=== PATIENT | female | born 1935 | race African-American/Black ===

== ENCOUNTER 2017-01-25 07:53 | Outpatient (CLI) | payer OTHER ==
[~2017-01-25 07:53] MED LIST: MOTRIN; REMERON; VICODIN; [UNRECOGNIZED DRUG - OTHER]
[2017-01-25 08:46] LABS: BASOPHILS # (AUTO) 0.1 K/uL (0.00-0.22); BASOPHILS % (AUTO) 1.9 % (0.0-2.0); EOSINOPHILS % (AUTO) 1.2 % (0.0-4.0); HEMATOCRIT 45.6 % (36-48); HEMOGLOBIN 14.8 g/dL (12.0-16.0); LYMPHOCYTES # (AUTO) 0.4 K/uL (2.5-16.5); LYMPHOCYTES % (AUTO) 10.3 % (20.5-51.1); MEAN CORPUSCULAR HEMOGLOBIN 28 pg (27-31); MEAN CORPUSCULAR HGB CONC 33 g/dL (33-37); MEAN CORPUSCULAR VOLUME 85 fL (80-94); MONOCYTES # (AUTO) 0.5 K/uL (0.8-1.0); MONOCYTES % (AUTO) 11.9 % (1.7-9.3); NEUTROPHILS # (AUTO) 2.9 K/uL (1.8-7.7); NEUTROPHILS % (AUTO) 74.7 % (42.2-75.2); PLATELET COUNT (AUTO) 289 K/uL (140-450); RED BLOOD CELL COUNT(AUTO) 5.38 MIL/uL (4.20-5.40); RED CELL DISTRIBUTION WIDTH 14.7 % (11.6-13.7); WHITE BLOOD COUNT (AUTO) 3.9 K/uL (4.8-10.8)
[2017-01-25 09:11] LABS: ANION GAP 13.6 (8-16); ASPARTATE AMINOTRANSFERASE 15 U/L (15-37); CARBON DIOXIDE 25.8 mmol/L (21-32); CHLORIDE 103 mmol/L (98-107); CREATININE 1.2 mg/dL (0.6-1.3); GLUCOSE 95 mg/dL (74-106); POTASSIUM 4.4 mmol/L (3.5-5.1); SODIUM SERUM 138 mmol/L (136-145); TOTAL BILIRUBIN 0.6 mg/dL (0.0-1.0); UREA NITROGEN, BLOOD 12 mg/dL (7-18)
[2017-01-26 12:21] LABS: FOLIC ACID 7.6 ng/mL (>3.0)
== END 2017-01-25 20:26 | disposition home or self-care (01) ==
LOC: MLB 07:53
DX: F03.90 Unspecified dementia, unspecified severity, without behavioral disturbance, psychotic disturbance, mood disturbance, and anxiety (principal)
CPT/HCPCS: 36415; 80053; 82607; 82746; 84443; 84481; 85025; 85651; 86592

== ENCOUNTER 2018-07-09 15:17 | Emergency (ER) | payer OTHER ==
[~2018-07-09] VITALS: Ht 165.1 cm; Wt 68.0 kg
[2018-07-09 15:22] VITALS: BP 136/87
--- NOTE | 2018-07-09 15:27 | NUR ---
PT BIBA BLS TO ER BED 10
[2018-07-09] MEDS ORDERED: NACL 0.9% 1,000 ML IV SCH (15:46)
[2018-07-09] MEDS ORDERED: NACL 0.9% 1,000 ML IV ONE (15:46)
[2018-07-09] MEDS ORDERED: LACTULOSE 20 GM/30 ML UDC PO ONE (15:50)
[2018-07-09] MEDS ORDERED: DICYCLOMINE HCL LIQUID 10 MG/5 ML UDC PO ONE (15:50)
[2018-07-09] MEDS ORDERED: METOCLOPRAMIDE 10 MG TAB PO ONE (15:50)
--- NOTE | 2018-07-09 15:56 | NUR ---
PATIENT PRESENTS TO ED WITH BROUGHT IN BY EMS FROM HOME---PT WITH HX OF DEMENTIA C/O LEFT SIDED ABDOMINAL PAIN X LAST NIGHT-, DENIES CONSTIPATION HYPERACTIVE BOWEL SOUNDS AT THIS TIME---NO DISCOLORATION OR TENDERNESS TO ABDOMEN . DENIES N/V/D; SKIN IS PINK/WARM/DRY; LUNGS CLEAR BL; HR EVEN AND REGULAR; PT DENIES ANY FEVER, CP, SOB, OR COUGH AT THIS TIME; PATIENT STATES PAIN OF 8/10 AT THIS TIME; VSS; PATIENT POSITIONED FOR COMFORT; HOB ELEVATED; BEDRAILS UP X2; BED DOWN. ER MD MADE AWARE OF PT STATUS.
[2018-07-09 16:19] LABS: BASOPHILS % (AUTO) 0.6 % (0.0-2.0); EOSINOPHILS % (AUTO) 0.8 % (0.0-4.0); HEMATOCRIT 36.9 % (36-48); HEMOGLOBIN 12.1 g/dL (12.0-16.0); LYMPHOCYTES # (AUTO) 0.9 K/uL (2.5-16.5); MEAN CORPUSCULAR HEMOGLOBIN 27 pg (27-31); MEAN CORPUSCULAR HGB CONC 33 g/dL (33-37); MEAN CORPUSCULAR VOLUME 81.5 fL (80-94); MONOCYTES # (AUTO) 0.9 K/uL (0.8-1.0); MONOCYTES % (AUTO) 15.8 % (1.7-9.3); NEUTROPHILS # (AUTO) 3.6 K/uL (1.8-7.7); NEUTROPHILS % (AUTO) 65.8 % (42.2-75.2); PLATELET COUNT (AUTO) 271 K/uL (140-450); RED BLOOD CELL COUNT(AUTO) 4.52 MIL/uL (4.20-5.40); RED CELL DISTRIBUTION WIDTH 15.8 % (11.6-13.7); WHITE BLOOD COUNT (AUTO) 5.4 K/uL (4.8-10.8)
[2018-07-09 16:35] LABS: ALBUMIN 3.8 g/dL (3.4-5.0); AMYLASE 135 U/L (25-115); ASPARTATE AMINOTRANSFERASE 15 U/L (15-37); CHLORIDE 95 mmol/L (98-107); CREATININE 1.9 mg/dL (0.6-1.3); GLUCOSE 187 mg/dL (74-106); LIPASE 586 U/L (73-393); MAGNESIUM 2.4 mg/dL (1.8-2.4); POTASSIUM 4.2 mmol/L (3.5-5.1); SODIUM SERUM 130 mmol/L (136-145); TOTAL BILIRUBIN 1.2 mg/dL (0.0-1.0); UREA NITROGEN, BLOOD 28 mg/dL (7-18)
--- NOTE | 2018-07-09 16:41 | NUR ---
PT GOING TO CT WITH TECH VIA BED
[2018-07-09 16:46] LABS: ANION GAP 11.3 (8-16); CARBON DIOXIDE 27.9 mmol/L (21-32)
--- NOTE | 2018-07-09 17:00 | NUR ---
PT RETURNED FROM CT VIA [place]----PT'S DAUGHTER AT BEDSIDE ALONG WITH PT'S GRINDING MACHINE OPERATOR
[2018-07-09] MEDS ORDERED: NACL 0.9% 2,000 ML IV SCH (17:02)
--- NOTE | 2018-07-09 17:28 | NUR ---
pt up to restroom ambulatory with assistance--no apparent distress
--- NOTE | 2018-07-09 17:40 | NUR ---
retured to room ---pt missed providing urine sample; false alarm on urge to defecate. pt and family in good spirits-; thanking and staff for the help and support. they continue to hold conversation among themselves.
--- NOTE | 2018-07-09 18:29 | NUR ---
NOTIFIED URINE NOT COLLECTED---OKAYED TO DC IV IF SECOND NS L BOLUS COMPLETED.
[2018-07-09 18:47] VITALS: BP 126/63
--- NOTE | 2018-07-09 18:50 | NUR ---
Patient discharged with v/s stable. Written and verbal after care instructions given and explained. Patient alert, oriented and verbalized understanding of instructions. Ambulatory with steady gait. All questions addressed prior to discharge. ID band removed. Patient advised to follow up with PMD. Rx of PEDIALYTE given. Patient educated on indication of medication including possible reaction and side effects. Opportunity to ask questions provided and answered.
== END 2018-07-09 18:50 | disposition home or self-care (01) ==
LOC: MED 15:17
DX: E86.0 Dehydration (principal); E87.1 Hypo-osmolality and hyponatremia; K57.90 Diverticulosis of intestine, part unspecified, without perforation or abscess without bleeding; K59.00 Constipation, unspecified; N18.3 Chronic kidney disease, stage 3 (moderate); K85.90 Acute pancreatitis without necrosis or infection, unspecified; Z88.0 Allergy status to penicillin; Z79.899 Other long term (current) drug therapy
CPT/HCPCS: 36415; 74176; 80053; 82150; 83690; 83735; 85025; 96360; 96361; 99284; J7030; J8597

== ENCOUNTER 2019-02-09 14:51 | Outpatient (CLI) | payer OTHER | END 2019-02-09 21:20 | disposition home or self-care (01) | LOC: MRD 14:51 | DX: M16.0 Bilateral primary osteoarthritis of hip (principal) ==

== ENCOUNTER 2019-05-14 13:59 | Emergency (ER) | payer OTHER ==
[~2019-05-14] VITALS: Ht 165.1 cm; Wt 75.3 kg
[2019-05-14 14:02] VITALS: BP 133/72
--- NOTE | 2019-05-14 14:02 | NUR ---
BIBA LOWER ABDOMINAL PAIN X 3 DAYS. VOMITTED ONE TIME. CAME FROM HOME, BIB EMS. HX:HTN, CHF DENIES DIARRHEA; SKIN IS PINK/WARM/DRY; AWAKE,ALERT. LUNGS CLEAR BL; HR EVEN AND REGULAR; PT DENIES ANY FEVER, CP, SOB, OR COUGH AT THIS TIME; PATIENT STATES PAIN OF 10/10 AT THIS TIME; VSS; PATIENT POSITIONED FOR COMFORT; HOB ELEVATED; BEDRAILS UP X2; BED DOWN. ER MD MADE AWARE OF PT STATUS.
[2019-05-14 15:03] LABS: BASOPHILS % (AUTO) 0.7 % (0.0-2.0); EOSINOPHILS # (AUTO) 0.1 K/uL (0-0.4); EOSINOPHILS % (AUTO) 1.6 % (0.0-4.0); HEMATOCRIT 36.7 % (36-48); HEMOGLOBIN 11.8 g/dL (12.0-16.0); LYMPHOCYTES # (AUTO) 0.7 K/uL (2.5-16.5); LYMPHOCYTES % (AUTO) 17.8 % (20.5-51.1); MEAN CORPUSCULAR HEMOGLOBIN 27 pg (27-31); MEAN CORPUSCULAR HGB CONC 32 g/dL (33-37); MONOCYTES # (AUTO) 0.5 K/uL (0.8-1.0); MONOCYTES % (AUTO) 13.6 % (1.7-9.3); NEUTROPHILS # (AUTO) 2.5 K/uL (1.8-7.7); NEUTROPHILS % (AUTO) 66.3 % (42.2-75.2); PLATELET COUNT (AUTO) 280 K/uL (140-450); RED BLOOD CELL COUNT(AUTO) 4.37 MIL/uL (4.20-5.40); RED CELL DISTRIBUTION WIDTH 15.2 % (11.6-13.7); WHITE BLOOD COUNT (AUTO) 3.8 K/uL (4.8-10.8)
[2019-05-14 15:24] LABS: ALBUMIN 3.7 g/dL (3.4-5.0); ANION GAP 11.7 (8-16); ASPARTATE AMINOTRANSFERASE 10 U/L (15-37); CARBON DIOXIDE 27.1 mmol/L (21-32); CHLORIDE 102 mmol/L (98-107); CREATININE 1.7 mg/dL (0.6-1.3); GLUCOSE 93 mg/dL (74-106); POTASSIUM 4.8 mmol/L (3.5-5.1); SODIUM SERUM 136 mmol/L (136-145); TOTAL BILIRUBIN 0.3 mg/dL (0.0-1.0); UREA NITROGEN, BLOOD 22 mg/dL (7-18)
--- NOTE | 2019-05-14 16:12 | NUR ---
NOTIFIED DR. SOLIS PT DOES NOT HAVE ANY URINE OUTPUT YET.
--- NOTE | 2019-05-14 16:50 | NUR ---
URINE SAMPLE COLLECTED.
[2019-05-14 16:56] VITALS: BP 133/85
--- NOTE | 2019-05-14 16:57 | NUR ---
Patient discharged with v/s stable. Written and verbal after care instructions given and explained TO PT'S DAUGHTER. Patient'S DAUGHTER alert, oriented and verbalized understanding of instructions. Ambulatory with steady gait. All questions addressed prior to discharge. ID band removed. Patient advised to follow up with PMD. Rx of MIRALAX given. Patient educated on indication of medication including possible reaction and side effects. Opportunity to ask questions provided and answered.
== END 2019-05-14 16:57 | disposition home or self-care (01) ==
LOC: MED 13:59
DX: K59.00 Constipation, unspecified (principal); I10 Essential (primary) hypertension; F03.90 Unspecified dementia, unspecified severity, without behavioral disturbance, psychotic disturbance, mood disturbance, and anxiety; Z88.0 Allergy status to penicillin
CPT/HCPCS: 36415; 80053; 85025; 99284

== ENCOUNTER 2020-07-05 17:54 | Emergency (ER) | payer OTHER ==
[~2020-07-05] VITALS: Ht 165.1 cm; Wt 78.5 kg
[~2020-07-05 17:54] MED LIST changes: +CODE BLUE PARTICIPANT 1 EA MISC MC ONE
== END 2020-07-05 18:00 ==
LOC: MED 17:54
DX: I46.9 Cardiac arrest, cause unspecified (principal); F03.90 Unspecified dementia, unspecified severity, without behavioral disturbance, psychotic disturbance, mood disturbance, and anxiety; I10 Essential (primary) hypertension; Z88.0 Allergy status to penicillin
CPT/HCPCS: 92950; 99285